=== PATIENT | male | born 1945 | race Caucasian/White ===

== ENCOUNTER 2017-07-20 12:08 | Inpatient (IN) | payer OTHER, MEDICARE ==
[~2017-07-20] VITALS: Ht 182.9 cm; Wt 128.0 kg
[~2017-07-20 12:08] MED LIST: APIX5 PO; ATOR20TA42 PO; CARV12.5 PO; FURO20TA PO; GLIP5TAB8 PO; LANO0.2510 PO; LISI-363 PO; SITA100 PO; VICTOZA SL; VITA50LO PO
[2017-07-20 12:34] VITALS: BP 111/53; PULSE 74; RESP 22; TEMP 99; O2SAT 99
[2017-07-20 14:13] LABS: AUTOMATED NEUTROPHIL # 7.2 TH/MM3 (1.8-7.7); BASOPHIL % 0.4 % (0.0-2.0); EOSINOPHIL # 0.3 TH/MM3 (0-0.4); HEMATOCRIT 33.8 % (39.0-51.0); HEMOGLOBIN 11.2 GM/DL (13.0-17.0); LYMPH % 14.6 % (9.0-44.0); LYMPHOCYTE # 1.4 TH/MM3 (1.0-4.8); MEAN CELL VOLUME 85.2 FL (80.0-100.0); MEAN CORPUSCULAR HEMOGLOBIN 28.3 PG (27.0-34.0); MEAN CORPUSCULAR HGB CONC 33.2 % (32.0-36.0); MEAN PLATELET VOLUME 8.8 FL (7.0-11.0); MONO % 8.1 % (0.0-8.0); MONOCYTE # 0.8 TH/MM3 (0-0.9); NEUT % 73.9 % (16.0-70.0); PLATELET COUNT 229 TH/MM3 (150-450); RED BLOOD COUNT 3.96 MIL/MM3 (4.50-5.90); RED CELL DISTRIBUTION WIDTH 16.5 % (11.6-17.2); WHITE BLOOD COUNT 9.7 TH/MM3 (4.0-11.0)
[2017-07-20 14:22] LABS: BACTERIA, URINE OCC /hpf; BILIRUBIN, URINE NEG (NEG); BLOOD, URINE LARGE (NEG); GLUCOSE,URINE NEG (NEG); HYALINE CAST, URINE 13 /lpf (RARE); KETONE, URINE NEG (NEG); MUCUS URINE FEW /lpf (OCC); NITRITE,URINE NEG (NEG); SQUAMOUS EPITHELIAL CELL URINE <1 /hpf (0-5); URINE COLOR YELLOW (YELLW/STRAW); URINE LEUKOCYTE ESTERASE SMALL (NEG)
[2017-07-20 14:30] LABS: ALBUMIN 3.3 GM/DL (3.4-5.0); ALT (GPT) 12 U/L (12-78); AST (GOT) 6 U/L (15-37); BLOOD UREA NITROGEN 89 MG/DL (7-18); CALCIUM 8.8 MG/DL (8.5-10.1); CHLORIDE 112 MEQ/L (98-107); CREATININE 2.47 MG/DL (0.60-1.30); GLOMERULAR FILTRATION RATE 26 ML/MIN (>89); GLUCOSE,RANDOM 175 MG/DL (74-106); SODIUM (NA) 140 MEQ/L (136-145)
[2017-07-20 14:32] LABS: ALKALINE PHOSPHATASE 75 U/L (45-117); TOTAL BILIRUBIN ADULT 0.7 MG/DL (0.2-1.0)
[2017-07-20] MEDS ORDERED: SODIUM CHLOR 0.9% 1000 ML INJ 1,000 ML IV SCH (14:35)
[2017-07-20] MEDS ORDERED: SODIUM CHLORIDE 0.9% FLUSH 10 ML FLUSH IV FLUSH PRN ×3 (14:45→17:30)
[2017-07-20] MEDS ORDERED: ONDANSETRON HCL 4 MG/2 ML VIAL IVP ONE (14:45)
[2017-07-20] MEDS ORDERED: MORPHINE SULFATE 4 MG/ML INJ IV PUSH ONE (15:00)
[2017-07-20] MEDS ORDERED: KETOROLAC TROMETHAMINE 30 MG/ML (IVP) VIAL IV PUSH ONE (15:00)
[2017-07-20 15:19] VITALS: O2SAT 98
[2017-07-20] MEDS ORDERED: LISI10TA3 PO (15:19)
[2017-07-20] MEDS ORDERED: SITA1TAB2 PO (16:24)
[2017-07-20] MEDS ORDERED: DIGO0.12 PO (16:24)
[2017-07-20] MEDS ORDERED: VITA500L2 SL (16:24)
[2017-07-20] MEDS ORDERED: CARV25TA (16:24)
[2017-07-20] MEDS ORDERED: ATOR80TA45 PO (16:24)
[2017-07-20] MEDS ORDERED: GLIP5TAB8 PO (16:24)
[2017-07-20] MEDS ORDERED: APIX5TAB PO (16:24)
[2017-07-20] MEDS ORDERED: FURO20TA PO (16:24)
--- NOTE | 2017-07-20 16:40 | PD ---
HPI Chief Complaint: Flank/Kidney Pain Time Seen by Provider: 14:35 Travel History International Travel<30 days: No Contact w/Intl Traveler<30days: No Traveled to known affect area: No History of Present Illness HPI She comes in complaining of flank pain, states decreased urination over last 24 hrs....preceding 3 days patient also experienced nausea vomiting and diarrhea. patient denies any alleviating or aggravating factors.... pt denies assoc factors such as fever, rash, jimenes/cp/abd pain/back pain at this time. PFSH Past Medical History Hx Anticoagulant Therapy: Yes Asthma: No Atrial Fibrillation: Yes Blood Disorders: No Heart Rhythm Problems: Yes (A. FIB) Cancer: No Cardiovascular Problems: Yes High Cholesterol: No Chest Pain: No Congestive Heart Failure: Yes COPD: No Coronary Artery Disease: Yes Diabetes: Yes Patient Takes Glucophage: No Endocrine: Yes Genitourinary: No Hypertension: Yes Immune Disorder: No Implanted Vascular Access Dvce: Yes Kidney Stones: Yes (1988) Musculoskeletal: Yes Neurologic: No Psychiatric: No Reproductive: No Respiratory: No Integumentary: Yes (DIABETIC ULCER ON LEFT FOOT) Myocardial Infarction: Yes Renal Failure: Yes Sleep Apnea: No Thyroid Disease: No Past Surgical History Body Medical Devices: DEFIBRILATOR Cardiac Surgery: Yes (BYPASS) Coronary Artery Bypass Graft: Yes (2006) Thoracic Surgery: Yes Other Surgery: Yes Social History Alcohol Use: Yes Tobacco Use: No Substance Use: Yes (vapor THC) Allergies-Medications (Allergen,Severity, Reaction): Coded Allergies: *MDRO Multi-Drug Resistant Organism (Verified Adverse Reaction, Unknown, ) MRSA (wound) - 06/2009 Reported Meds & Prescriptions Reported Meds & Active Scripts Active Reported Januvia (Sitagliptin Phosphate) 100 Mg Tab 100 Mg PO DAILY Glipizide 5 Mg Tab 5 Mg PO DAILY Take 30 minutes before a meal Furosemide 20 Mg Tab 20 Mg PO DAILY Digoxin 0.125 Mg Tab 0.125 Mg PO DAILY B-12 (Cyanocobalamin) 500 Mcg Subl 500 Mcg SL DAILY Carvedilol 25 Mg Tab 25 Mg BID Atorvastatin (Atorvastatin Calcium) 80 Mg Tab 80 Mg PO HS Eliquis (Apixaban) 5 Mg Tab 5 Mg PO BID Lisinopril 10 Mg Tab 10 Mg PO DAILY [Victoza] 1.8 SL DIRECTED Review of Systems General / Constitutional: No: Fever Eyes: No: Visual changes HENT: No: Headaches Cardiovascular: No: Chest Pain or Discomfort Respiratory: No: Shortness of Breath Gastrointestinal: Positive: Nausea, Vomiting, Diarrhea Genitourinary: No: Dysuria Musculoskeletal: No: Pain Skin: No Rash Neurologic: No: Weakness Psychiatric: No: Depression Endocrine: No: Polydipsia Hematologic/Lymphatic: No: Easy Bruising Physical Exam Narrative GENERAL: SKIN: Warm and dry. HEAD: Atraumatic. Normocephalic. EYES: Pupils equal and round. No scleral icterus. No injection or drainage. ENT: No nasal bleeding or discharge. Mucous membranes dry NECK: Trachea midline. No JVD. CARDIOVASCULAR: Regular rate and rhythm. RESPIRATORY: No accessory muscle use. Clear to auscultation. Breath sounds equal bilaterally. GASTROINTESTINAL: Abdomen soft, non-tender, nondistended. MUSCULOSKELETAL: Extremities without clubbing, cyanosis, or edema. No obvious deformities. NEUROLOGICAL: Awake and alert. No obvious cranial nerve deficits. Motor grossly within normal limits. Five out of 5 muscle strength in the arms and legs. Normal speech. PSYCHIATRIC: Appropriate mood and affect; insight and judgment normal. Data Data Last Documented VS Vital Signs Date Time Temp Pulse Resp B/P (MAP) Pulse Ox O2 Delivery O2 Flow Rate FiO2 07/20/17 15:19 98 Room Air 07/20/17 12:34 99.0 74 22 111/53 (72) Orders Orders Urinalysis - C+S If Indicated (07/20/17 12:37) Complete Blood Count With Diff (07/20/17 12:39) Comprehensive Metabolic Panel (07/20/17 12:39) Urine Culture (07/20/17 12:55) Iv Access Insert/Monitor (07/20/17 14:35) Ecg Monitoring (07/20/17 14:35) Oximetry (07/20/17 14:35) Ondansetron Inj (Zofran Inj) (07/20/17 14:45) Sodium Chlor 0.9% 1000 Ml Inj (Ns 1000 M (07/20/17 14:35) Sodium Chloride 0.9% Flush (Ns Flush) (07/20/17 14:45) Ketorolac Inj (Toradol Inj) (07/20/17 15:00) Morphine Inj (Morphine Inj) (07/20/17 15:00) Ct Abd/Pel W/O Iv Contrast (07/20/17 16:40) Comprehensive Metabolic Panel (07/21/17 06:00) Free Thyroxine (T4) (07/21/17 06:00) Hemoglobin (Hgb) A1c (07/21/17 06:00) Magnesium (Mg) (07/21/17 06:00) Phosphorus (Po4) (07/21/17 06:00) Thyroid Stimulating Hormone (07/21/17 06:00) Complete Blood Count With Diff (07/21/17 06:00) Bedside Glucose FABIANO.CSUGAR (07/20/17 17:02) Blood Glucose Goal (Criteria) (07/20/17 17:) Hypoglycemia 70 Mg/Dl Or < (07/20/17 17:02) Notify Dr: Other (07/20/17 17:02) Dextrose 50% In Ty (Vial) Inj (D50w (Vi (07/20/17 17:15) Glucagon Inj (Glucagon Inj) (07/20/17 17:15) Case Management Consult (07/20/17 ) Insulin Aspart Supplemtl Scale (Novolog (07/20/17 21:00) Admit Order (Ed Use Only) (07/20/17 17:06) Digoxin (07/20/17 12:55) Lipase (07/20/17 12:55) Labs Laboratory Tests Test 07/20/17 12:55 White Blood Count 9.7 TH/MM3 Red Blood Count 3.96 MIL/MM3 Hemoglobin 11.2 GM/DL Hematocrit 33.8 % Mean Corpuscular Volume 85.2 FL Mean Corpuscular Hemoglobin 28.3 PG Mean Corpuscular Hemoglobin Concent 33.2 % Red Cell Distribution Width 16.5 % Platelet Count 229 TH/MM3 Mean Platelet Volume 8.8 FL Neutrophils (%) (Auto) 73.9 % Lymphocytes (%) (Auto) 14.6 % Monocytes (%) (Auto) 8.1 % Eosinophils (%) (Auto) 3.0 % Basophils (%) (Auto) 0.4 % Neutrophils # (Auto) 7.2 TH/MM3 Lymphocytes # (Auto) 1.4 TH/MM3 Monocytes # (Auto) 0.8 TH/MM3 Eosinophils # (Auto) 0.3 TH/MM3 Basophils # (Auto) 0.0 TH/MM3 CBC Comment DIFF FINAL Differential Comment Urine Color YELLOW Urine Turbidity HAZY Urine pH 5.0 Urine Specific [place] 1.017 Urine Protein TRACE mg/dL Urine Glucose (UA) NEG mg/dL Urine Ketones NEG mg/dL Urine Occult Blood LARGE Urine Nitrite NEG Urine Bilirubin NEG Urine Urobilinogen LESS THAN 2.0 MG/DL Urine Leukocyte Esterase SMALL Urine RBC /hpf Urine WBC 9 /hpf Urine Squamous Epithelial Cells <1 /hpf Urine Bacteria OCC /hpf Urine Hyaline Casts 13 /lpf Urine Mucus FEW /lpf Microscopic Urinalysis Comment CULTURE INDICATED Blood Urea Nitrogen 89 MG/DL Creatinine 2.47 MG/DL Random Glucose 175 MG/DL Total Protein 8.0 GM/DL Albumin 3.3 GM/DL Calcium Level 8.8 MG/DL Alkaline Phosphatase 75 U/L Aspartate Amino Transf (AST/SGOT) 6 U/L Alanine Aminotransferase (ALT/SGPT) 12 U/L Total Bilirubin 0.7 MG/DL Sodium Level 140 MEQ/L Potassium Level 4.5 MEQ/L Chloride Level 112 MEQ/L Carbon Dioxide Level 19.0 MEQ/L Anion Gap 9 MEQ/L Estimat Glomerular Filtration Rate 26 ML/MIN Lipase 263 U/L Digoxin Level 1.0 NG/ML [facility] Medical Decision Making Medical Screen Exam Complete: Yes Emergency Medical Condition: Yes Medical Record Reviewed: Yes Differential Diagnosis dehydration versus renal failure versus electrolyte abnormality Narrative Course CBC shows no leukocytosis, no anemia, normal platelet count, and no left shift UA is significant for mild UTI Electrolytes show elevated BUN of 89 creatinine of 2.47 with a GFR of 26 consistent with a left stage IV chronic kidney disease, random glucose of 175, normal liver function normal alk phos normal bilirubin Patient is showing acute decompensation of his chronic kidney disease likely secondary to dehydration from GI losses. Patient has not been initiated on rehydration, and is currently pending a CT scan to rule out obstructive uropathy since patient has flank pain Diagnosis Primary Impression: ACUTE EXACERBATION OF CKD Additional Impression: DEHYDRATION Admitting Information Admitting Physician Requests: Observation Raimundo Duggan MD Jul 20, 2017 16:40
[2017-07-20] MEDS ORDERED: MAGNESIUM HYDROXIDE SUSP 30 ML CUP PO PRN (17:15)
[2017-07-20] MEDS ORDERED: METOCLOPRAMIDE HCL 10 MG/2 ML VIAL IV PUSH PRN (17:15)
[2017-07-20] MEDS ORDERED: BISACODYL 10 MG SUPP RECTAL PRN (17:15)
[2017-07-20] MEDS ORDERED: LACTULOSE SYRUP 20 GM/30 ML CUP PO PRN (17:15)
[2017-07-20] MEDS ORDERED: DEXTROSE 50% IN WATER 50 ML VIAL(D50) IV PUSH PRN (17:15)
[2017-07-20] MEDS ORDERED: SENNOSIDES 8.6 MG TAB PO PRN (17:15)
[2017-07-20] MEDS ORDERED: GLUCAGON 1 MG/ML VIAL OTHER PRN (17:15)
[2017-07-20] MEDS ORDERED: MORPHINE SULFATE 2 MG/ML SYRINGE IV PUSH PRN ×3 (17:30)
[2017-07-20] MEDS ORDERED: oxyCODONE/ACETAMINOPHEN 5 MG/325 MG TAB PO PRN (17:30)
[2017-07-20] MEDS ORDERED: ONDANSETRON HCL 4 MG/2 ML VIAL IVP PRN (17:30)
[2017-07-20] MEDS ORDERED: ACETAMINOPHEN 325 MG TAB PO PRN ×2 (17:30)
[2017-07-20] MEDS ORDERED: NALOXONE HCL 0.4 MG/ML AMP IV PUSH PRN (17:30)
[2017-07-20] MEDS ORDERED: oxyCODONE/ACETAMINOPHEN 10 MG/325 MG TAB PO PRN (17:30)
--- NOTE | 2017-07-20 18:08 | RADRPT ---
EXAM DATE/TIME: 07/20/2017 17:50 [facility] COMPARISON: No previous studies available for comparison. INDICATIONS : Bilateral flank pain. ORAL CONTRAST: No oral contrast ingested. RADIATION DOSE: 29.35 CTDIvol (mGy) ; Patient body habitus MEDICAL HISTORY : Cardiovascular disease. Hypertension. Renal calculi. SURGICAL HISTORY : CABG Pacemaker. ENCOUNTER: Initial ACUITY: 1 day PAIN SCALE: 5/10 LOCATION: Bilateral flank TECHNIQUE: Volumetric scanning of the abdomen and pelvis was performed. Using automated exposure control and ad justment of the mA and/or kV according to patient size, radiation dose was kept as low as reasonably achievable to obtain optimal diagnostic quality images. DICOM format image data is available electro nically for review and comparison. FINDINGS: LOWER LUNGS: The visualized lower lungs are clear. LIVER: Homogeneous density without lesion. There is no dilation of the biliary tree. No calcified gallston es. SPLEEN: Normal size without lesion. PANCREAS: Within normal limits. KIDNEYS: There is a 4 mm nonobstructing stone in the posterior lower pole collecting system of the right kidne y. No stones are seen on the left. There is a small cortical cyst arising in the lateral lower pole c ortex of the left kidney. There is mild nonspecific perinephric fatty tissue stranding. No ureteral s tones are identified. No hydronephrosis noted. ADRENAL GLANDS: Within normal limits. VASCULAR: Dense atherosclerotic calcifications in abdominal aorta and branch vessels. No aneurysm. BOWEL/MESENTERY: The stomach, small bowel, and colon demonstrate no acute abnormality. There is no free intraperitone al air or fluid. ABDOMINAL WALL: Tiny fat containing umbilical hernia. RETROPERITONEUM: There is no lymphadenopathy. BLADDER: No wall thickening or mass. REPRODUCTIVE: Within normal limits. INGUINAL: There is no lymphadenopathy or hernia. MUSCULOSKELETAL: Within normal limits for patient age. CONCLUSION: 4 mm nonobstructing right kidney stone. Gaurav Oconnor MD on July 20, 2017 at 18:01 Board Certified Radiologist. This report was verified electronically.
[2017-07-20] MEDS: SODIUM CHLOR 0.9% 1000 ML INJ 1,000 ML IV SCH (19:00)
[2017-07-20 19:30] VITALS: O2SAT 97
[2017-07-20 20:12] VITALS: BP 128/60; PULSE 66; RESP 18; TEMP 97.8; O2SAT 96
[2017-07-20] MEDS ORDERED: TAMSULOSIN HCL 0.4 MG CAP PO SCH (21:00)
[2017-07-20] MEDS ORDERED: ATORVASTATIN 80 MG TAB PO SCH (21:00)
[2017-07-20] MEDS: INSULIN ASPART SUPPLEMENTAL SCALE SQ SCH (21:00)
[2017-07-20] MEDS ORDERED: SODIUM CHLORIDE 0.9% FLUSH 10 ML FLUSH IV FLUSH SCH (21:00)
[2017-07-20] MEDS ORDERED: cefTRIAXone INJ 1,000 MG in SODIUM CHLORIDE 0.9% INJ 100 ML IV SCH (21:00)
--- NOTE | 2017-07-20 21:49 | HHI.HP ---
[facility]Staff Admission Diagnosis UTI, Nephrolithiasis, Acute on Chronic Kidney Disease, and Dehydration . Diagnoses: (1) UTI (urinary tract infection) (2) Nephrolithiasis (3) Acute on chronic renal failure (4) Dehydration Chief Complaint: Back pain Travel History International Travel<30 Days: No Contact w/Intl Traveler <30 Da: No Traveled to Known Affected Are: No History of Present Illness Mr. Clinton is a 72 y/o male who presented to the ER on 07/20/17 complaining of severe mid-lower back pain. He was found to have a mild UTI, 4 mm nonobstructive kidney stone, dehydration, and acute on chronic renal failure and is admitted to the hospitalist group for medical management. Mr. Clinton is seen in his room. He reports having lower to mid back pain that was aching in bandlike over the past 3-4 days that progressively worsened until he sought care at the emergency room. He was given IV Toradol, IV morphine, and a normal saline fluid bolus in the emergency room and reports adequate relief of symptoms at the time of my visit. His symptoms were accompanied by nausea, vomiting, and diarrhea. He denies any fevers but reports he has been having chills over the past few days. 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 Bennett Atrial fibrillation Hypertension Congestive heart failure Nephrolithiasis status post lithotripsy in 1988 Chronic kidney disease, stage 3 - follows with Dr. Sheela Castaneda left foot . Past Surgical History Lithotripsy AICD implantation CABG 2005 or 2006 . Reported Medications Reported Meds & Active Scripts Active Reported Januvia (Sitagliptin Phosphate) 100 Mg Tab 100 Mg PO DAILY Glipizide 5 Mg Tab 5 Mg PO DAILY Take 30 minutes before a meal Furosemide 20 Mg Tab 20 Mg PO DAILY Digoxin 0.125 Mg Tab 0.125 Mg PO DAILY B-12 (Cyanocobalamin) 500 Mcg Subl 500 Mcg SL DAILY Carvedilol 25 Mg Tab 25 Mg BID Atorvastatin (Atorvastatin Calcium) 80 Mg Tab 80 Mg PO HS Eliquis (Apixaban) 5 Mg Tab 5 Mg PO BID Lisinopril 10 Mg Tab 10 Mg PO DAILY [Victoza] 1.8 SL DIRECTED . Allergies: Coded Allergies: *MDRO Multi-Drug Resistant Organism (Verified Adverse Reaction, Unknown, ) MRSA (wound) - 06/2009 Family History Mother at age 95 from complications resulting from myasthenia gravis Father age 80 from CVA Sister age 63 from COPD/emphysema Son recently diagnosed with stage IV colon cancer . Social History Tobacco: former smoker Alcohol: denies Illicit Drugs: Zelnas vapor Retired from [employer] . Physical Exam Vital Signs Vital Signs Date Time Temp Pulse Resp B/P (MAP) Pulse Ox O2 Delivery O2 Flow Rate FiO2 07/20/17 20:12 97.8 66 18 128/60 (82) 96 07/20/17 19:30 97 07/20/17 15:19 98 Room Air 07/20/17 12:34 99.0 74 22 111/53 (72) 99 Physical Exam TEMPLATE: CONSTITUTIONAL: This is an overweight older male patient, in no apparent distress. INTEGUMENTARY: No rashes. Cool and dry. Left frausto wound covered with a foam dressing -patient requests that we wait for his to bring in a replacement dressing before removing for examination - he wants to continue using this particular foam dressing. He changes them q3d. HEAD: Atraumatic. Normocephalic. EYES: No scleral icterus. No injection or drainage. ENT: Nose without bleeding, purulent drainage. NECK: Trachea midline. No JVD. CARDIOVASCULAR: Regular rate and rhythm without murmurs, gallops, or rubs. Right lower extremity with +2 ankle edema, pitting. RESPIRATORY: Clear to auscultation. Breath sounds equal bilaterally. No wheezes , rales, or rhonchi. GENITOURINARY: No CVA tenderness elicited on exam. GASTROINTESTINAL: Abdomen soft, non-tender, nondistended. No guarding. MUSCULOSKELETAL: Extremities without clubbing, cyanosis. No calf tenderness. NEUROLOGICAL: Awake and alert. Motor and sensory grossly within normal limits. Normal speech. . Laboratory Laboratory Tests Test 07/20/17 12:55 White Blood Count 9.7 Red Blood Count 3.96 Hemoglobin 11.2 Hematocrit 33.8 Mean Corpuscular Volume 85.2 Mean Corpuscular Hemoglobin 28.3 Mean Corpuscular Hemoglobin Concent 33.2 Red Cell Distribution Width 16.5 Platelet Count 229 Mean Platelet Volume 8.8 Neutrophils (%) (Auto) 73.9 Lymphocytes (%) (Auto) 14.6 Monocytes (%) (Auto) 8.1 Eosinophils (%) (Auto) 3.0 Basophils (%) (Auto) 0.4 Neutrophils # (Auto) 7.2 Lymphocytes # (Auto) 1.4 Monocytes # (Auto) 0.8 Eosinophils # (Auto) 0.3 Basophils # (Auto) 0.0 CBC Comment DIFF FINAL Differential Comment Urine Color YELLOW Urine Turbidity HAZY Urine pH 5.0 Urine Specific [place] 1.017 Urine Protein TRACE Urine Glucose (UA) NEG Urine Ketones NEG Urine Occult Blood LARGE Urine Nitrite NEG Urine Bilirubin NEG Urine Urobilinogen LESS THAN 2.0 Urine Leukocyte Esterase SMALL Urine RBC Urine WBC 9 Urine Squamous Epithelial Cells <1 Urine Bacteria OCC Urine Hyaline Casts 13 Urine Mucus FEW Microscopic Urinalysis Comment CULTURE INDICATED Blood Urea Nitrogen 89 Creatinine 2.47 Random Glucose 175 Total Protein 8.0 Albumin 3.3 Calcium Level 8.8 Alkaline Phosphatase 75 Aspartate Amino Transf (AST/SGOT) 6 Alanine Aminotransferase (ALT/SGPT) 12 Total Bilirubin 0.7 Sodium Level 140 Potassium Level 4.5 Chloride Level 112 Carbon Dioxide Level 19.0 Anion Gap 9 Estimat Glomerular Filtration Rate 26 Lipase 263 Digoxin Level 1.0 Date/Time Source Procedure Growth Status 07/20/17 12:55 Urine Random Urine Urine Culture Pending Received Result Diagram: 07/20/17 1255 07/20/17 1255 Imaging Last Impressions Abdomen/Pelvis CT 07/20/17 1640 Signed Impressions: Service Date/Time: July 17:50 - CONCLUSION: 4 mm nonobstructing right kidney stone. Gaurav Oconnor MD Lower Extremity Ultrasound 07/20/17 0000 Signed Impressions: Service Date/Time: July 22:52 - CONCLUSION: Normal examination. MD Thanh Heller Jr. VTE Risk Assessment Caprini VTE Risk Assessment: Mod/High Risk (score >= 2) Caprini Risk Assessment Model Point Value = 1 Point Value = 2 Point Value = 3 Point Value = 5 Age 41-60 Minor surgery BMI > 25 kg/m2 Swollen legs Varicose veins or History of unexplained or recurrent spontaneous Oral contraceptives or hormone replacement Sepsis (< 1 month) Serious lung disease, including pneumonia (< 1 month) Abnormal pulmonary function Acute myocardial infarction Congestive heart failure (< 1 month) History of inflammatory bowel disease Medical patient at bed rest Age 61-74 Arthroscopic surgery Major open surgery (> 45 min) Laparoscopic surgery (> 45 min) Malignancy Confined to bed (> 72 hours) Immobilizing plaster cast Central venous access Age >= 75 History of VTE Family history of VTE Factor V Leiden Prothrombin [id number] Lupus anticoagulant Anticardiolipin antibodies Elevated serum homocysteine Heparin-induced thrombocytopenia Other congenital or acquired thrombophilia Stroke (< 1 month) Elective arthroplasty Hip, pelvis, or leg fracture Acute spinal cord injury (< 1 month) Prophylaxis Regimen Total Risk Factor Score Risk Level Prophylaxis Regimen 0-1 Low Early ambulation 2 Moderate Order ONE of the following: *Sequential Compression Device (SCD) *Heparin 5000 units SQ BID 3-4 Higher Order ONE of the following medications: *Heparin 5000 units SQ TID *Enoxaparin/Lovenox 40 mg SQ daily (WT < 150 kg, CrCl > 30 mL/min) *Enoxaparin/Lovenox 30 mg SQ daily (WT < 150 kg, CrCl > 10-29 mL/min) *Enoxaparin/Lovenox 30 mg SQ BID (WT < 150 kg, CrCl > 30 mL/min) AND/OR *Sequential Compression Device (SCD) 5 or more Highest Order ONE of the following medications: *Heparin 5000 units SQ TID (Preferred with Epidurals) *Enoxaparin/Lovenox 40 mg SQ daily (WT < 150 kg, CrCl > 30 mL/min) *Enoxaparin/Lovenox 30 mg SQ daily (WT < 150 kg, CrCl > 10-29 mL/min) *Enoxaparin/Lovenox 30 mg SQ BID (WT < 150 kg, CrCl > 30 mL/min) AND *Sequential Compression Device (SCD) Assessment and Plan Problem List: (1) UTI (urinary tract infection) ICD Code: N39.0 - Urinary tract infection, site not specified (2) Nephrolithiasis ICD Code: N20.0 - Calculus of kidney (3) Dehydration ICD Code: E86.0 - Dehydration (4) Acute on chronic renal failure ICD Code: N17.9 - Acute kidney failure, unspecified; N18.9 - Chronic kidney disease, unspecified Assessment and Plan Mr. Clinton is a 72 y/o male who presented to the ER on 07/20/17 complaining of severe mid-lower back pain. He was found to have a mild UTI, 4 mm nonobstructive kidney stone, dehydration, and acute on chronic renal failure and is admitted to the hospitalist group for medical management. UTI suspected - UA suspicious for UTI - Ceftriaxone 1 gm IV q24h - await urine culture results and adjust treatment as indicated Nephrolithiasis - non-obstructive - CT abd/pelvis without contrast showed 4 mm nonobstructing right kidney stone - NPO after midnight in case urology wants to plan any procedures (though doubtful given patient's clinical improvement) - Consult urology - Hold Eliquis for now - restart YUNI if no procedures are planned Dehydration - IVF hydration with NS at 100 cc/hr Acute on Chronic Renal Failure - follows with Dr. Coker as an outpatient - BUN 89, creatinine 2.47, estimated GFR 26 -worse compared to prior labs - IVF hydration as above - recheck BMP in a.m. and follow renal indices - avoid nephrotoxins Right lower extremity swelling - Check doppler u/s to r/o DVT - resulted as normal examination Type 2 Diabetes Mellitus - Hold home Januvia, glipizide, and Victoza - Accu-Cheks before meals and at bedtime with low-dose NovoLog sliding scale coverage - PRN Hypoglycemia protocol - Monitor trends and blood glucose readings and adjust treatments as indicated CAD, Hypertension, CHF - follows with Dr. Bennett as an outpatient - Hold Lasix for now due to dehydration - Continue home Digoxin, Atorvastatin, Carvedilol - Holding home Lisinopril due to renal failure DVT prophylaxis - will need home Eliquis restarted YUNI - mechanical contraindications include right lower extremity swelling and left lower extremity wound Discussed Condition With Dr. Means, RN, and patient . Physician Certification 2 Midnight Certification Type: Admission for Inpatient Services Order for Inpatient Services The services are ordered in accordance with Medicare regulations or non- Medicare payer requirements, as applicable. In the case of services not specified as inpatient-only, they are appropriately provided as inpatient services in accordance with the 2-midnight benchmark. Estimated LOS (days): 2 days is the estimated time the patient will need to remain in the hospital, assuming treatment plan goals are met and no additional complications. Post-Hospital Plan: Not yet determined Krista Jenkins Jul 20, 2017 21:49
[2017-07-20] MEDS: SODIUM CHLORIDE 0.9% FLUSH 10 ML FLUSH IV FLUSH SCH (23:15)
[2017-07-20] MEDS: DOCUSATE SODIUM 50 MG/SENNA 8.6 MG TAB PO SCH (23:15)
[2017-07-20] MEDS: CARVEDILOL 12.5 MG TAB PO SCH (23:15)
[2017-07-20 23:25] VITALS: BP 110/53; PULSE 66; RESP 18; TEMP 97.7; O2SAT 92
--- NOTE | 2017-07-20 23:52 | RADRPT ---
EXAM DATE/TIME: 07/20/2017 22:52 [facility] COMPARISON: No previous studies available for comparison. INDICATIONS : Right leg swelling. MEDICAL HISTORY : Hypertension. Congestive heart failure. Myocardial infarction. Coronary artery disease. Anticoagul ant therapy. Afib. Renal calculi. Renal failure. Diabetes. Ulcer on foot. MRSA. SURGICAL HISTORY : CABG ENCOUNTER: Initial ACUITY: 1 day PAIN SCORE: 2/10 LOCATION: Right leg. TECHNIQUE: Venous ultrasound of the leg was performed from the inguinal ligament to the proximal calf. Real-deepak e, color Doppler and spectral tracing, compression and augmentation techniques were used. FINDINGS: There is normal compressibility of the deep venous system from the inguinal region to the proximal ca lf. No echogenic clot is seen in the lumen of the common femoral, femoral, popliteal, and posterior tibial veins. There is a normal response of the venous system to proximal and distal augmentation an d respiration. CONCLUSION: Normal examination. Audie Spaulding Jr., MD on July 20, 2017 at 23:50 Board Certified Radiologist. This report was verified electronically.
[2017-07-21 03:57] VITALS: BP 112/54; PULSE 65; RESP 18; TEMP 97.9; O2SAT 94
[2017-07-21] MEDS: SODIUM CHLOR 0.9% 1000 ML INJ 1,000 ML IV SCH (04:07)
[2017-07-21 05:07] LABS: AUTOMATED NEUTROPHIL # 4.8 TH/MM3 (1.8-7.7); BASOPHIL % 0.5 % (0.0-2.0); EOSINOPHIL # 0.3 TH/MM3 (0-0.4); EOSINOPHIL % 4.5 % (0.0-4.0); HEMATOCRIT 28.4 % (39.0-51.0); HEMOGLOBIN 9.7 GM/DL (13.0-17.0); LYMPH % 23.3 % (9.0-44.0); LYMPHOCYTE # 1.8 TH/MM3 (1.0-4.8); MEAN CELL VOLUME 85.1 FL (80.0-100.0); MEAN CORPUSCULAR HEMOGLOBIN 29.2 PG (27.0-34.0); MEAN CORPUSCULAR HGB CONC 34.3 % (32.0-36.0); MEAN PLATELET VOLUME 8.7 FL (7.0-11.0); MONO % 9.1 % (0.0-8.0); MONOCYTE # 0.7 TH/MM3 (0-0.9); NEUT % 62.6 % (16.0-70.0); PLATELET COUNT 182 TH/MM3 (150-450); RED BLOOD COUNT 3.34 MIL/MM3 (4.50-5.90); RED CELL DISTRIBUTION WIDTH 16.9 % (11.6-17.2); WHITE BLOOD COUNT 7.7 TH/MM3 (4.0-11.0)
[2017-07-21 05:35] LABS: ALBUMIN 2.6 GM/DL (3.4-5.0); ALKALINE PHOSPHATASE 67 U/L (45-117); ALT (GPT) 9 U/L (12-78); AST (GOT) 8 U/L (15-37); BICARBONATE 17.5 MEQ/L (21.0-32.0); BLOOD UREA NITROGEN 85 MG/DL (7-18); CALCIUM 8.1 MG/DL (8.5-10.1); CHLORIDE 117 MEQ/L (98-107); CREATININE 2.48 MG/DL (0.60-1.30); FREE T4 1.17 NG/DL (0.76-1.46); GLOMERULAR FILTRATION RATE 26 ML/MIN (>89); GLUCOSE,RANDOM 187 MG/DL (74-106); MAGNESIUM 1.7 MG/DL (1.5-2.5); PHOSPHORUS 3.2 MG/DL (2.5-4.9); SODIUM (NA) 142 MEQ/L (136-145); TOTAL BILIRUBIN ADULT 0.4 MG/DL (0.2-1.0); TOTAL PROTEIN 6.9 GM/DL (6.4-8.2)
[2017-07-21 08:14] VITALS: BP 96/52; PULSE 69; RESP 18; TEMP 97; O2SAT 97
[2017-07-21] MEDS: CYANOCOBALAMIN 1,000 MCG TAB PO SCH ×2 (09:00→09:20)
[2017-07-21] MEDS: SODIUM CHLORIDE 0.9% FLUSH 10 ML FLUSH IV FLUSH SCH (09:00)
[2017-07-21] MEDS ORDERED: DIGOXIN 0.125 MG TAB PO SCH (09:00)
[2017-07-21] MEDS ORDERED: CYANOCOBALAMIN 500 MCG SL SCH (09:00)
[2017-07-21] MEDS: CARVEDILOL 12.5 MG TAB PO SCH ×2 (09:19→09:42)
[2017-07-21] MEDS: DOCUSATE SODIUM 50 MG/SENNA 8.6 MG TAB PO SCH ×2 (09:20→09:42)
[2017-07-21] MEDS: INSULIN ASPART SUPPLEMENTAL SCALE SQ SCH (09:21)
--- NOTE | 2017-07-21 12:56 | HHI.PR ---
Subjective Remarks Follow up for non-obstructing right kidney stone. Patient is currently doing well. No fever, chills. He denies any dysuria, hematuria, flank pain. Per RN, Urology has already seen patient and recommended Flomax and outpatient follow up. Objective Vitals Vital Signs Date Time Temp Pulse Resp B/P (MAP) Pulse Ox O2 Delivery O2 Flow Rate FiO2 07/21/17 08:14 97.0 69 18 96/52 (67) 97 07/21/17 07:20 Room Air 07/21/17 03:57 97.9 65 18 112/54 (73) 94 07/20/17 23:25 97.7 66 18 110/53 (72) 92 07/20/17 21:30 Room Air 07/20/17 20:12 97.8 66 18 128/60 (82) 96 07/20/17 19:30 97 07/20/17 15:19 98 Room Air I/O 07/20/17 07/20/17 07/20/17 07/21/17 07/21/17 07/21/17 07:00 15:00 23:00 07:00 15:00 23:00 Intake Total 1000 ml 1387 ml 120 ml Output Total 350 ml Balance 650 ml 1387 ml 120 ml Intake Oral 120 ml IV Total 1000 ml 1387 ml Output Urine Total 350 ml Result Diagram: 07/21/17 0412 07/21/17 0412 Imaging Last Impressions Abdomen/Pelvis CT 07/20/17 1640 Signed Impressions: Service Date/Time: July 17:50 - CONCLUSION: 4 mm nonobstructing right kidney stone. Gaurav Oconnor MD Lower Extremity Ultrasound 07/20/17 0000 Signed Impressions: Service Date/Time: July 22:52 - CONCLUSION: Normal examination. Audie Spaulding Jr., MD Objective Remarks GENERAL: Alert, Oriented x 3, NAD. SKIN: Warm and dry. HEAD: Normocephalic. EYES: No scleral icterus. No injection or drainage. NECK: Supple, trachea midline. No JVD or lymphadenopathy. CARDIOVASCULAR: Regular rate and rhythm without murmurs, gallops, or rubs. RESPIRATORY: Breath sounds equal bilaterally. No accessory muscle use. GASTROINTESTINAL: Abdomen soft, non-tender, nondistended. MUSCULOSKELETAL: No cyanosis, or edema. BACK: Nontender without obvious deformity. No CVA tenderness. A/P Problem List: (1) UTI (urinary tract infection) ICD Code: N39.0 - Urinary tract infection, site not specified (2) Nephrolithiasis ICD Code: N20.0 - Calculus of kidney (3) Dehydration ICD Code: E86.0 - Dehydration (4) Acute on chronic renal failure ICD Code: N17.9 - Acute kidney failure, unspecified; N18.9 - Chronic kidney disease, unspecified Assessment and Plan Mr. Clinton is a 72 y/o male who presented to the ER on 07/20/17 complaining of severe mid-lower back pain. He was found to have a mild UTI, 4 mm nonobstructive kidney stone, dehydration, and acute on chronic renal failure and is admitted to the hospitalist group for medical management. UTI suspected - Received Ceftriaxone 1 gm IV q24h. No clinical evidence of infection. Will not continue any abx. Nephrolithiasis - non-obstructive - CT abd/pelvis without contrast showed 4 mm nonobstructing right kidney stone - Urology evaluated patient, recommended Flomax and outpatient follow up. Dehydration - Receievd IVF hydration with NS at 100 cc/hr Acute on Chronic Renal Failure - follows with Dr. Coker as an outpatient - BUN 89, creatinine 2.47, estimated GFR 26 -worse compared to prior labs - IVF hydration as above Right lower extremity swelling - Checked doppler u/s to r/o DVT - resulted as normal examination Type 2 Diabetes Mellitus - resume home Januvia, glipizide, and Victoza - Accu-Cheks before meals and at bedtime with low-dose NovoLog sliding scale coverage - PRN Hypoglycemia protocol CAD, Hypertension, CHF - follows with Dr. Bennett as an outpatient - Continue Lasix for now due to dehydration - Continue home Digoxin, Atorvastatin, Carvedilol Discharge patient to home Condition on discharge: Improved Diabetic Diet as tolerated Ad Bel activity Rx written: Flomax Rx written by Urologist. No other new meds. Follow-up with primary care physician within one week and Urologist within one week. Emily Haynes DO Jul 21, 2017 12:56 pm
[2017-07-21 14:49] LABS: HEMOGLOBIN A1C 8.7 % (4.3-6.0)
--- NOTE | 2017-07-21 15:19 | MB ---
cc: Min Bronsonn Vanessa DO DATE: 07/21/2017 HISTORY OF PRESENT ILLNESS: Mr. Clinton is a pleasant 72-year-old male who presents with history of left-sided back pain, which was severe in nature and had difficulty with ambulation. He also admits to some difficulty with urination, getting up 2-3 times at night. He denies any prior history of prostate problems, but does have a family history of prostate cancer, which was found in his son. He has also noted some nausea, vomiting, and diarrhea. He denies any fever or chills. His CT scan in the emergency room demonstrated a 4 mm nonobstructing right kidney stone. He did state that the pain now, however, is mostly on his left side. There was no evidence of any hydronephrosis on his CT scan. PAST MEDICAL HISTORY: Includes diabetes, heart disease, atrial fibrillation, hypertension, CHF, nephrolithiasis, chronic kidney disease stage III. PAST SURGICAL HISTORY: Noted for left extracorporeal shockwave lithotripsy in 1988, AICD implantation and a CABG in 2005, MEDICATIONS: Please refer to the chart. ALLERGIES: HE HAS NO DRUG ALLERGIES, BUT THERE IS A WOUND INFECTION WITH MRSA IN 2009. FAMILY HISTORY: Son with prostate cancer. Sister with emphysema, COPD. Father at age 80 with a stroke. Mother at age 95 from myasthenia gravis. SOCIAL HISTORY: He is a prior smoker. He does admit to using THC vapor. REVIEW OF SYSTEMS: He notes nocturia x 2. His back pain has since resolved since admission. He denies any nausea or vomiting at present. Denies abdominal pain. Does note some gait disturbances at times due to his back pain. Remaining review of systems were reviewed and were negative. PHYSICAL EXAMINATION: VITAL SIGNS: Temperature 97, heart rate 69, respiratory rate 18, and blood pressure 96/52. GENERAL: He is slightly obese 72-year-old man in no acute distress. HEENT: Normocephalic, atraumatic. Pupils equal, round, regular and reactive to light. Extraocular movements intact. NECK: Supple. HEART: Regular rate and rhythm. LUNGS: Clear. ABDOMEN: Soft, nontender, and nondistended. BACK: There is no CVA tenderness noted. GENITOURINARY: Normal phallus. Testes. EXTREMITIES: Lower extremities show no evidence of cyanosis, clubbing or edema. NEUROLOGIC: Cranial nerves 2-12 are intact. LABORATORY DATA: White count is 7.7, hemoglobin 9.7, hematocrit 28.4, platelet count of 182. Sodium 142, potassium 4.7, chloride 117, CO2 of 17.5, BUN of 85, creatinine 2.48, glucose of 187. Urinalysis shows small leukocyte esterase were numerous red cells and 9 white cells. Culture showed no growth in 24 hours. IMAGING STUDIES: Again, there is a 4 mm right-sided nonobstructing stone. ASSESSMENT AND PLAN: This is a pleasant 72-year-old male with findings of a 4 mm right nonobstructing renal stone. Back pain, most likely musculoskeletal in nature and not due to obstructing stone. Recommend starting Flomax 0.4 mg p.o. at bedtime to help with his nocturia x 2 and will followup on an outpatient. Prescription written for Flomax, which is on the chart. Thank you for the consult and allowing me to participate in the care of this patient. DO OCTAVIANO Millan/LAW , 02:36 PM , 03:17 PM
== END 2017-07-21 14:00 | disposition home or self-care (01) | DRG 690 ==
LOC: NEPD 12:08 → NEDA 17:09 → OBSVTOIN 17:13 → NEDH 19:13
PROVIDERS: ADMIT Hospitalist; ATTEND Hospitalist
DX: N39.0 Urinary tract infection, site not specified (principal); N18.4 Chronic kidney disease, stage 4 (severe); E11.22 Type 2 diabetes mellitus with diabetic chronic kidney disease; I48.91 Unspecified atrial fibrillation; N17.9 Acute kidney failure, unspecified; I13.0 Hypertensive heart and chronic kidney disease with heart failure and stage 1 through stage 4 chronic kidney disease, or unspecified chronic kidney disease; I50.9 Heart failure, unspecified; E11.621 Type 2 diabetes mellitus with foot ulcer; L97.529 Non-pressure chronic ulcer of other part of left foot with unspecified severity; N20.0 Calculus of kidney; E86.0 Dehydration; I25.10 Atherosclerotic heart disease of native coronary artery without angina pectoris; R35.1 Nocturia; I25.2 Old myocardial infarction; Z87.442 Personal history of urinary calculi; Z95.1 Presence of aortocoronary bypass graft; Z87.891 Personal history of nicotine dependence; Z95.810 Presence of automatic (implantable) cardiac defibrillator; Z79.01 Long term (current) use of anticoagulants; Z86.14 Personal history of Methicillin resistant Staphylococcus aureus infection; M79.89 Other specified soft tissue disorders
CPT/HCPCS: 74176; 80053; 80162; 81001; 82948; 83036; 83690; 83735; 84100; 84439; 84443; 85025; 87086; 87641; 93971; 96361; 96374; 96375; J0696; J1815; J1885; J2270; J2405; J7030